=== PATIENT | female | born 1980 | race Caucasian/White ===

== ENCOUNTER 2024-11-01 00:28 | Outpatient (CLI) | payer MEDICAID, SELFPAY ==
--- NOTE | 2024-11-01 07:30 | DI.MRI_ITS ---
Exam(s) MR LOWER JOINT RT WO EXAM: MR LOWER JOINT RT WO CLINICAL HISTORY: PAIN,internal derangement rt knee,m23.91. TECHNIQUE: Multiplanar multisequence MRI was performed. COMPARISON: CR XR KNEE 3V BILAT-M2 from 05/01/2024 FINDINGS: BONES: There is no fracture or contusion pattern. Red marrow reconversion which could be associated with obesity and or anemia.. JOINTS: A small joint effusion is present. Articular cartilage: Patellofemoral joint: Severe thinning of the cartilage over the medial patellar facet extending down to involving underlying bone. There is some high signal in the bone. Medial femoral tibial joint: Articular cartilage is unremarkable. Lateral femoral tibial joint: Articular cartilage is unremarkable. LIGAMENTS/TENDONS: Anterior Cruciate: Unremarkable. Posterior Cruciate: Unremarkable. Medial Collateral:Unremarkable. Lateral Collateral ligament complex: Unremarkable. Extensor mechanism: Unremarkable. Medial retinaculum: Unremarkable. Lateral retinaculum: Unremarkable. Popliteus: Unremarkable. MENISCI: The medial meniscus is unremarkable. The lateral meniscus is unremarkable. MUSCLES: Unremarkable. SOFT TISSUES: Mild edema in the anterior soft tissues. 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 No evidence meniscal tear or ligament tear. DATA REPOSITORY:
== END 2024-11-01 00:48 ==
LOC: DI 00:28
PROVIDERS: PCP Physician Assistant Medical; Visit Provider Student in an Organized Health Care Education/Training Program
DX: M22.41 Chondromalacia patellae, right knee (principal)
CPT/HCPCS: 73721

== ENCOUNTER 2025-02-03 18:26 | Outpatient (REF) | payer MEDICARE, MEDICAID, SELFPAY ==
[2025-02-03 15:24] LABS: HCT 43.6 % (36.0-46.0); MCH 30.2 pg (27.0-33.0); MCHC 32.1 % (32.0-36.0); MCV 94 fL (80-95); MPV 9.7 fL (8.0-11.0); Platelet Count 305 10^3/uL (130-400); RBC 4.64 10^6/uL (3.93-5.22); RDW 15.7 % (11.7-14.6); WBC 11.25 10^3/uL (4.4-10.8)
[2025-02-03 16:49] LABS: Anion Gap 9.5 mmol/L (3-11); BUN 12 mg/dL (7-18); CO2 24.5 mmol/L (21.0-32.0); CREATININE 0.8 mg/dL (0.55-1.02); Calcium 9.3 mg/dL (8.5-10.1); Chloride 102 mmol/L (98-107); Glucose 119 mg/dL (74-106); Potassium 4.2 mmol/L (3.5-5.1); Sodium 136 mmol/L (136-145)
== END 2025-02-03 18:27 | disposition home or self-care (01) ==
LOC: LBN 18:26
PROVIDERS: PCP Physician Assistant Medical; Visit Provider Student in an Organized Health Care Education/Training Program
DX: M22.41 Chondromalacia patellae, right knee (principal); M17.11 Unilateral primary osteoarthritis, right knee; Z01.818 Encounter for other preprocedural examination
CPT/HCPCS: 80048; 85027

== ENCOUNTER 2025-02-12 09:51 | Day surgery (SDC) | payer MEDICARE, MEDICAID, SELFPAY ==
[2025-02-12] VITALS (20 sets, daily range): BP systolic 109–166; BP diastolic 54–94; PULSE 91–112; RESP 11–24; TEMP 36.1–37; O2SAT 86–98; BMI 52.1
--- NOTE | 2025-02-12 07:30 | PDOC.DSDIS_ITS ---
Date of service: 02/12/25 Discharge Plan Disposition Patient Disposition: Home Condition: Good Discharge Details Reason For Visit: PF Replacement R knee Attending Provider: Cameron Soto Primary Care Provider: Moni Parker Home Meds and New Rx's Prescriptions: New acetaminophen 500 mg tablet 1,000 mg PO TID Qty: 90 3RF aspirin 81 mg tablet,delayed release (DR/EC) 81 mg PO BID Qty: 60 0RF celecoxib 200 mg capsule 200 mg PO BID Qty: 60 0RF dexamethasone 4 mg tablet 4 mg PO DAILY Qty: 2 0RF docusate sodium 100 mg capsule 100 mg PO BID PRNQty: 28 0RF gabapentin 300 mg capsule 300 mg PO QHS Qty: 14 0RF oxycodone 5 mg tablet 5 mg PO Q4H PRNQty: 18 0RF Continued pantoprazole 40 mg tablet,delayed release (DR/EC) 40 mg PO DAILY topiramate [Topamax] 25 mg tablet 25 mg PO DAILY Otezla 30 mg tablet 30 mg PO BID Discharge Instructions Additional Instructions: PF Replacement Knee Discharge Instructions Activity: The most important activity is to walk and to work on gentle motion (both flexion and extension). You should try to take short walks a few times a day. It is important that when resting you work on keeping the knee straight. Avoid putting a pillow behind the knee as this will encourage flexion. Work on range of motion exercises as provided by Physical Therapy. - Start outpatient physical therapy within 2 weeks. - You should wear the ROSELYN hose on both legs for 2 weeks. You may remove these at night. You may also use any compression sock in place of the ROSELYN hose. - Utilize [employer] to review exercises, see videos on exercises and obtain basic information pertaining to your surgery and your recovery. Dressing: Remove the Ari wrap by 2 days after your surgery and put on the ROSELYN stocking given to you from the hospital. Keep the surgical dressing (underneath the ARI wrap) in place for at least one week. After the first week it may be removed and replaced with light gauze and tape or nothing. The wound and dressing may get wet after 3 days but avoid soaking the dressing or otherwise it will need to be changed. Many people prefer covering the dressing with cling wrap (saran wrap) to minimize it from getting soaked. If it gets wet, just pat dry. If it starts to peel off then it will need to be changed. Medications: - You should take Tylenol and anti-inflammatory Celebrex as your primary pain control medications. If the Celebrex is too expensive or not covered, please call the office for another alternative (Advil/Ibuprofen or Naproxen/Aleve) - You have been prescribed a stronger pain medication Oxycodone for breakthrough pain, take as needed as prescribed. - You wlil continue your stomach acid reduction agent Pantoprozole to help reduce stomach acid and reflux. - You have been prescribed Gabapentin to take at night for restlessness and nerve pain. - You will be taking Aspirin 81mg twice a day for DVT prevention unless instructed otherwise. - You have also been prescribed Decadron to take to control post-operative nausea and pain. You will start this tomorrow. - If you have constipation you should take Colace or Miralax (both [id number]). It takes most people 3-4 days to have a bowel movement. Follow-up: 2 weeks If you have any acute concerns or questions, please do not hesitate to contact the office at [phone]. You may contact Dr. Soto with any questions after hours through the hospital at [phone] or on his cell phone at [phone]. Referrals: Cameron Soto MD [ [facility] STAFF PHYSICIAN, Orthopaedic Surgical] Equipment/Supplies: Walker Activity:: Activity as Tolerated Shower/Bathe:: 72 hours Diet:: As Tolerated Discharge Orders Discharge Orders: Discharge Order (Routine); Ordered 02/12/25 Ordered By: Mario Vallejo DS: Diagnosis Discharge Diagnosis (1) Patellofemoral arthritis of right knee: Status: Acute
--- NOTE | 2025-02-12 09:50 | W.ANESPRE ---
General Info Date of Service Date Performed: 02/12/25 Height: 5 ft 2 in Weight: 129.274 kg Body Mass Index (BMI): 52.1 Surgical Procedure: Operation Date: 02/12/25 13:30 Proposed Procedure Side Surgeon p Knee Patellofemoral Replacement Right Cameron Soto MD Meds Allergies and Home Medications Allergies Allergy/AdvReac Type Severity Reaction Status Date / Time No Known Allergies Allergy Verified 02/12/25 10:10 Home Medication ?Medication ?Instructions ?Recorded pantoprazole 40 mg tablet,delayed 40 mg PO DAILY 08/06/24 release topiramate 25 mg tablet (Topamax) 25 mg PO DAILY 08/06/24 apremilast 30 mg tablet (Otezla) 30 mg PO BID Psoriasis and PSA 02/11/25 acetaminophen 500 mg tablet 1,000 mg (2 x 500 mg) PO TID #90 02/12/25 tabs aspirin 81 mg tablet,delayed 81 mg PO BID #60 tabs 02/12/25 release celecoxib 200 mg capsule 200 mg PO BID #60 caps 02/12/25 dexamethasone 4 mg tablet 4 mg PO DAILY #2 tabs 02/12/25 docusate sodium 100 mg capsule 100 mg PO BID PRN #28 caps 02/12/25 gabapentin 300 mg capsule 300 mg PO QHS #14 caps 02/12/25 oxycodone 5 mg tablet 5 mg PO Q4H PRN #18 tabs 02/12/25 Current Visit Medications: Current Medications Generic Name Dose Route Start Last Admin Trade Name Freq PRN Reason Stop Dose Admin Acetaminophen 1,000 mg 02/12/25 06:00 Acetaminophen 500 Mg Tab PO 02/12/25 23:59 PREOP SLIME Acetaminophen 1,000 mg 02/12/25 07:29 Acetaminophen 500 Mg Tab PO 03/14/25 07:28 TID PRN PRN Analgesia Celecoxib 400 mg 02/12/25 06:00 Celecoxib 200 Mg Cap PO 02/12/25 23:59 PREOP SLIME Docusate Sodium 100 mg 02/12/25 07:29 Docusate Sodium 100 Mg Cap PO 03/14/25 07:28 BID PRN PRN Constipation Gabapentin 300 mg 02/12/25 06:00 Gabapentin 300 Mg Cap PO 02/12/25 23:59 PREOP SLIME Ringer's Solution 1,000 mls @ 80 mls/hr 02/12/25 06:00 IV 02/12/25 23:59 INFUSION SLIME Cefazolin Sodium 3,000 mg/ 100 mls @ 200 mls/hr 02/12/25 06:00 Sodium Chloride IV 02/12/25 23:59 PREOP SLIME Tranexamic Acid/Sodium Chloride 1,000 mg in 100 mls @ 600 mls/hr 02/12/25 06:00 IVPB 02/12/25 23:59 PREOP SLIME IV Miscellaneous Supplies 1 each 02/12/25 06:00 Iv Access IV 02/12/25 23:59 DIRECTED SLIME Ondansetron HCl 4 mg 02/12/25 07:29 Ondansetron 4 Mg/2 Ml Vial IVP 03/14/25 07:28 Q6H PRN PRN Nausea Oxycodone HCl 0 mg 02/12/25 07:29 Oxycodone 5 Mg Tab PO 03/14/25 07:28 Q3H PRN PRN Pain Polyethylene Glycol 17 gm 02/12/25 07:29 Polyethylene Glycol 3350 17 Gm Packet PO 03/14/25 07:28 BID PRN PRN Constipation Sodium Chloride 0 ml 02/12/25 06:00 Normal Saline Flush 10 Ml Syr IV 02/12/25 23:59 PRN PRN Sodium Chloride 0 ml 02/12/25 06:00 Normal Saline 10 Ml Vial IJ 02/12/25 23:59 DIRECTED PRN Sterile Water 0 ml 02/12/25 06:00 Water,Injection,Sterile 10 Ml Vial IJ 02/12/25 23:59 DIRECTED PRN PFSH Active Problems Active Problems: Problem Status Onset Code Patellofemoral arthritis of right knee Acute M17.11 Tobacco use Acute Z72.0 Psoriatic arthritis Acute L40.50 IIH (idiopathic intracranial hypertension) Acute G93.2 Hyperglycemia Acute R73.9 Depression Chronic F32.A Chronic pain Chronic G89.29 Asthma Chronic J45.909 Tobacco Smoking/Tobacco Use Status: Current every day Tobacco Type: cigarettes Alcohol Alcohol Intake: never Substance Use Substance use: Never Substance use type: does not use Vital Signs and Lab Results Vital Signs Most Recent Vital Signs in EMR: Temp Pulse Resp BP Pulse Ox 36.6 C 112 H 19 156/69 H 96 02/12/25 10:04 02/12/25 10:04 02/12/25 10:04 02/12/25 10:04 02/12/25 10:04 Lab Results Complete Blood Count: WBC, (4.4-10.8) 11.25 10^3/uL H 02/03/25, 14:20 RBC, (3.93-5.22) 4.64 10^6/uL 02/03/25, 14:20 Hgb, (11.2-15.7) 14.0 g/dL 02/03/25, 14:20 Hct, (36.0-46.0) 43.6 % 02/03/25, 14:20 Plt Count, (130-400) 305 10^3/uL 02/03/25, 14:20 Complete Metabolic Panel: Sodium, (136-145) 136 mmol/L 02/03/25, 14:20 Potassium, (3.5-5.1) 4.2 mmol/L 02/03/25, 14:20 Chloride, (98-107) 102 mmol/L 02/03/25, 14:20 Carbon Dioxide, (21.0-32.0) 24.5 mmol/L 02/03/25, 14:20 BUN, (7-18) 12 mg/dL 02/03/25, 14:20 Creatinine, (0.55-1.02) 0.8 mg/dL 02/03/25, 14:20 Est GFR (CKD-EPI 2020), (mL/min/1.73m2) 93.70 02/03/25, 14:20 Calcium, (8.5-10.1) 9.3 mg/dL 02/03/25, 14:20 Glucose, (74-106) 119 mg/dL H 02/03/25, 14:20 Anesthesia Assessment and Plan Anesthesia History Personal History: No History of Anesthesia Complications Family History: No Family History of Anesthesia Complications Exercise Tolerance Exercise Tolerance: Metabolic Equivalents>4 Cardiac & Pulmonary Exam Cardiac Exam: Normal S1/S2 Heart Sounds Pulmonary Exam: Clear Bilateral Breath Sounds Implantable Cardiac Device Does patient have a Pacemaker or an ICD?: No Airway Exam Known Difficult Airway: No Mallampati Class: 4 Mouth Opening: Narrow (< 3cm) Thyromental Distance: Less than 3 cm Neck Range of Motion: Full ROM Neck Circumference: Thick Teeth Condition: Normal Dentition ASA Classification ASA Score: ASA 3 Emergency Case?: No NPO Status NPO Status: NPO Clears >2 hours, Solids >8 hours Status Status: Negative HCG Anesthesia Plan Resuscitation Status: Full Code Anesthesia Technique: Spinal Anesthesia Airway Planned: Natural Airway Pain Management: Surgeon and patient request nerve block Monitors Used: Standard Monitors Preoperative Comments:: 44 yo female for patellofemoral replacement. Sig PMHx: asthma (albuterol - rare use), IIH (followed by [facility]. has had LPs in the past. Topiramate), GERD (Pantoprazole. Started for nausea, which has helped) depression,
[2025-02-12] MEDS: Celecoxib 200 MG CAP 400 MG PO (10:16)
[2025-02-12] MEDS: Acetaminophen 500 MG TAB 1000 MG PO (10:16)
[2025-02-12] MEDS: Gabapentin 300 MG CAP PO (10:16)
[2025-02-12] MEDS: Lactated Ringers 1,000 ML 80 ML IV (10:42)
[2025-02-12] MEDS: Normal Saline Flush 10 ML SYR IV (11:35)
--- NOTE | 2025-02-12 11:50 | W.ANESNERVE ---
Nerve Block Single Injection Procedure Date and Time Date Performed: 02/12/25 Procedure Start: 11:38 Location Where Procedure Performed Procedure Location: Day Surgery Unit Reason Performed: Postoperative Analgesia Requesting Provider: Cameron Soto Timeout Performed Timeout Performed: Yes Monitoring Used ECG, Blood Pressure and SpO2 Sterility Sterility: Hand Hygiene, Surgical Cap, Surgical Mask, Sterile Gloves and Chlorhexidine Sedation Given During Procedure Sedation Given (Indicate Dose Given): Versed IV Dose:: 2 mg Patient Mental Status Patient Mental Status: Sedate with meaningful communication Nerve Block 1st Nerve Block: Laterality: Right Block Type: Adductor Canal Ultrasound Image Saved?: Yes Needle / Catheter Used: 100mm SonoPlex II Local Anesthetic Bolus (Indicate Dose Given): Injected in 3-5ml increments after negative blood aspiration and Bupivacaine 0.25% Dose:: 10 mL Additives (Indicate Dose Given): None Ultrasound: Sterile probe cover and gel used Nerve Stimulator: Supplement to Ultrasound use and No twitch or parasthesia noted < 0.5 mA (<0.6) Paresthesia: None Procedure Tolerated: No Complications Procedure Outcome: Successful Performed By: Domenic Mart
[2025-02-12] MEDS: ceFAZolin 3,000 MG in Normal Saline 100 ML 200 MG IV (12:11)
[2025-02-12] MEDS: TRANEXAMIC ACID/SOD. CHL. 1,000 MG/100 ML BAG 600 MG IVPB (12:19)
--- NOTE | 2025-02-12 13:14 | ROE_ITS ---
Operative Note Operative Note PRE-OP DIAGNOSIS: Right Patella Chondromalacia POST-OP DIAGNOSIS: same PROCEDURE: Right Patlleofemoral Replacement SURGEON: Cameron Soto INJECTION SPECIALIST: Mario Vallejo Refer to Anesthesia Record ESTIMATED BLOOD LOSS: 50 PATHOLOGY: none sent TOURNIQUET TIME: 0 COMPLICATIONS: None Patient was transported to: PACU Patient's condition: stable Implants: 1. Arthrosurface Wave Trochlear Component, 10x5mm 2. Depuy Attune Patellar Button, 29mm Indications: Ayla is a 44 year old female who has had symptoms of right patellofemoral arthritis, with focal complete chondormalacia of the patella. Conservative measures have been exhausted yet pain and dysfunction persisted. Please see office notes for complete details. Given the continued symptoms, I recommended a patellofemoral replacement. I reviewed the risks of the procedure to include bleeding, infection, pain, stiffness, worsening medial or lateral compartment arthritis, patellar instability, loosening, fracture, clot. Despite these risks, she elected to proceed. Findings: There was notable full-thickness cartilage loss about the lateral facet of the patella along with some chondromalacia within the central trochlea. The remainder of the knee did not show any extensive cartilage wear. Procedure Description: Ayla was greeted in the preoperative holding area where the correct side was identified and marked. The consent was reviewed with the patient and signed. The history and physical was updated. All questions were answered. Preoperative medications were administered: Acetaminophen 1000mg, Celebrex 400mg, and Gabapentin 300mg. An adductor canal block was then administered by the anesthesia team in the DSU. She was taken back to the operating room. A spinal anesthestic was then administered. The patient was placed into the supine position on the operating room table. A nonsterile tourniquet was placed high onto the leg but not used. Posts were placed for positioning during the procedure. All bony prominences were well padded. Prophylactic antibiotics in the form of Cefazolin were administered. 1g of Tranxemic Acid was given intravenously within 30 minutes of incision. The right leg was then prepped with Chloraprep and draped in a standard fashion with impervious stockinette and extremity drape. A second prep with Chloraprep was performed prior to placing Ioband. A timeout to confirm correct identity, side and site, procedure, allergies, anesthesia, and medical concerns was performed. With the knee in some flexion, a midline incision was made overlying the knee. Full thickness skin flaps were raised once the extensor mechanism was encountered. These were raised medially and laterally. Any bleeding was controlled with electrocautery. Once the extensor mechanism was fully exposed, a medial parapatellar arthrotomy was performed in a flexed position. All bleeding from the arthrotomy and the geniculate arteries was coagulated. The menisci and intrameniscal ligament was preserved. The knee was held in extension and the patella was measured as 21 mm. Using the patellar clamp and cut guide, this was resected to a flat surface with at least 13mm of thickness remaining. The size 32 patella fit the best. This was oriented and then clamped into position. The lugs were drilled. The Arthrosurface patellofemoral trial was then placed in the appropriate position and a single guidewire was placed through the center of this device. This was confirmed to be in appropriate location using the targeting arm. The trochlea was then sized in both directions corresponding to an 10x5. The initial reamer was then placed and taken down to appropriate depth. The reaming and drill guide was then placed within this recess and secured with pins. Using both the centralized reamer and the edge reamer, the trochlear recess was prepared. The guide was removed and the edges were curetted for completeness. The central hole was then prepared with a drill and a tap. The outer surface screw was then inserted to the premeasured depth. The 10 x 5mm patellofemoral Wave trochlear component by Arthrosurface was then malleted into position sitting flush over the lateral and proximal lateral aspect. High viscosity cement was prepared on the back table under vacuum preparation. When ready, cement was manually impacted into the cut surface of the patella and the patellar button was clamped into position and held. During this process attention was turned to the gutters of the knee and for all interfaces for any excess cement. While the cement was hardening, the knee was irrigated with Surgiphor betadine solution. It was allowed to sit in the knee for 3 minutes after which it was irrigated with normal saline. After the cement had finally cured, approximately 15min, the clamp was removed from the patella and the knee was taken through range of motion. The capsule was then reapproximated with a No. 1 Vicryl. Deep tissues were then reapproximated with 0 Vicryl and 2-0 Vicryl. The skin was closed with a running 3-0 Monocryl in a subcuticular fashion. This was reinforced with skin glue. A Mepilex silver dressing was applied along with a [id number] LUIS ALBERTO wrap. A CryoCuff was applied. Ayla was transferred to the hospital bed without difficulty an suffering no apparent complication. Ayla has a good prognosis. Physical therapy will start today and without restrictions, weight-bearing as tolerated. Aspirin 81mg BID will be used for DVT prophylaxis. Date of Procedure: 02/12/25
--- NOTE | 2025-02-12 13:59 | W.ANESPOSTOP ---
Postoperative Evaluation Date, Time and Location Date Performed: 02/12/25 Time Performed: 13:59 Patient Location: PACU Vital Signs Most Recent Imported Vital Signs: Most Recent Vital Signs Temp Pulse Resp BP Pulse Ox 36.8 C 98 H 22 128/64 92 02/12/25 13:50 02/12/25 13:51 02/12/25 13:51 02/12/25 13:50 02/12/25 13:51 Pain Score Most Recent Pain Score: Most Recent Pain Score Pain Level 0 02/12/25 13:50 Assessment Mental Status: Awake (Alert & Oriented to Patient Baseline) Airway and Respiratory Function: Patent airway with normal (patient baseline) respiratory exam (SPO2 90-92%, IS ordered. ) Cardiovascular Function: Hemodynamically Stable Hydration Status: Adequately Hydrated Nausea & Vomiting: No Nausea or Vomiting Pain: Pain is tolerable per patient Peripheral Nerve Block: Regional nerve block not resolved at time of post operative discharge
--- NOTE | 2025-02-12 15:05 | IN_ITS ---
PT Notes Visit Reasons: PF Replacement R knee Physical Therapy Day Surgery Initial Evaluation Date: 02/12/2025 Referring Doctor: MICHELE Bundy; Dr. Soto PT Orders: PT CONSULT: S/P Ortho surgery Precautions: WBAT RLE Patient Profile/Admitting Diagnosis: Patient is 44-year-old female presenting status post right patellofemoral replacement by Dr. Soto on 02/12/2025. Patient postop uncomplicated PMHX: Chondromalacia of right patella (Acute) Patellofemoral arthritis of right knee (Acute) Internal derangement of right knee (Acute) Tobacco use (Acute) Psoriatic arthritis (Acute) IIH (idiopathic intracranial hypertension) (Acute) Hyperglycemia (Acute) Depression (Chronic) Chronic pain (Chronic) Asthma (Chronic) Social History/Home Situation: Patient resides in a multilevel home with stairs to enter and 15 steps to bedroom with railing on right. Patient independent with ADLs, ambulation without device, home management, meal prep, shopping. Equipment Owned/DME: FWW, commode over toilet, leg clinical support nurse, sock aid Subjective: Patient reports she will be staying on 1 level for now. She reports she has 15 stairs to her bedroom without railing on the right Objective: [] General Observation: Young female semireclined on stretcher has been visiting Cryo/Cuff to right knee Mental Status: Alert and oriented x 4, cooperative, able to follow instructions, agreeable to participate in eval Pain: Right knee 3/10 ROM: [] BUE: WNL Right Lower Extremity: Hip and ankle within normal limits; knee 0-94 degrees Left Lower Extremity: WNL Strength: [] BUE: 5/5 Right Lower Extremity: Hip flexion: 3- /5; hip abduction: 3 -/5; hip extension: 3 -/5; knee extension: 3 -/5; knee flexion: 2+/5 ankle DF: 3/5 ; ankle PF: 3/5; patient demonstrates quad set without compensation with cueing, straight leg raise without lag after performing quad set to initiate motion Left Lower Extremity: 5/5 grossly Sensation: Intact to light touch and pain Bed Mobility/Transfers: [] Supine to sit independent Sit to stand SBA with cues to push up from surface Stand to sit SBA with cues to reach back Bed to chair SBA with FWW Gait: Ambulated with FWW SBA 150 feet level surfaces including turns patient initially required cues for quad activation at mid stance to reduce knee instability on right. stairs: Two 6 inch steps and three 4 inch steps x 2 trials with right rail standby assist step to pattern cues for sequencing Balance: [] Static Sitting: normal Dynamic Sitting: good Static Standing: Good Dynamic Standing: fair plus Special Tests: [] Mobility Limitations Standardized Measure [] [facility] AM-PAC 6 clicks Basic Mobility Inpatient Short Form: [] Raw Score: 23. All CMS Score: 11.20% Informed Consent/Education: Patient instructed in purpose of PT consult. Packet containing knee exercise protocol has been given to patient. Education and training on initial set of exercises that can be done at home have been completed with patient. Assessment: Patient is a 44-year-old female who presents with clinical signs and symptoms consistent with current/admitting diagnoses that have resulted to mobility limitations, gait instability, generalized weakness, and impairment of motor control as demonstrated by the following impairment level findings: 1. Decreased strength to right knee major muscle groups 2. Impaired standing balance 3. Limitation of joint range of motion in right knee 4. Impaired functional activity tolerance . 5. Pain in right knee Impairments are contributing to the following functional limitations: 1. Inability to safely ambulate without assistive device 2. Increase completion time for mobility ADL performance 3. Increased fall risk 4. Difficulty performing stairs Patient is assessed as a low complexity based on the following: History: 44-year-old female with impairment level findings, functional limitations, and past medical history as indicated above Examination: Demonstrable impairment in strength, balance, and mobility level with underlying impairments and functional limitations as documented above Presentation: Stable Decision Making: Low Goals: N/A. PT evaluation and 1-2 treatment sessions only for functional mobility training using recommended AD and for HEP instruction. Plan of Care/Treatment Plan: N/A. PT evaluation and 1-2 treatment session only for functional mobility training using recommended AD and for HEP instruction. DISCHARGE RECOMMENDATIONS: Home with home exercise program and outpatient PT as scheduled TREATMENT CODE/TIME: [id number] Thank you for the opportunity to participate in the care of this patient. Shira Matute,PT [facility]
== END 2025-02-12 15:23 | disposition home or self-care (01) ==
PROVIDERS: PCP Physician Assistant Medical; Visit Provider Student in an Organized Health Care Education/Training Program
PROC: (CPT 27437; principal; 2025-02-12 13:00)
DX: M17.11 Unilateral primary osteoarthritis, right knee (principal); M22.41 Chondromalacia patellae, right knee; G89.18 Other acute postprocedural pain; M25.561 Pain in right knee
CPT/HCPCS: 27438; 64447; 81025; 97161; C1776; J0665; J0690; J1100; J2250; J2371; J2401; J2405; J2704

== ENCOUNTER 2025-02-27 14:01 | Outpatient (CLI) | payer MEDICARE, MEDICAID, SELFPAY ==
--- NOTE | 2025-02-27 13:20 | DI.RAD_ITS ---
Exam(s) XR KNEE RT 3V AP,LAT,DARIA EXAM: XR KNEE RT 3V AP,LAT,DARIA CLINICAL HISTORY: 1ST POST OP S/P PF REPLACEMENT. TECHNIQUE: 2D digital imaging was performed. Three views. COMPARISON: CR XR KNEE 3V BILAT-M2 from 05/01/2024 FINDINGS: BONES: No acute fracture is present. No bony destructive lesion is seen. JOINTS: The knee is normally aligned. There is a patellofemoral joint prosthesis. The femoral tibial joint spaces are maintained. No joint effusion is seen. SOFT TISSUE: Normal. IMPRESSION: Status post placement patellofemoral prosthesis with satisfactory position. DATA REPOSITORY: RADIATION DOSE DELIVERED:
== END 2025-02-27 14:02 | disposition home or self-care (01) ==
LOC: DIORS 14:02
PROVIDERS: PCP Physician Assistant Medical; Referring Provider Physician Assistant Medical; Visit Provider Physician Assistant
DX: M17.11 Unilateral primary osteoarthritis, right knee (principal); Z47.89 Encounter for other orthopedic aftercare
CPT/HCPCS: 99024; 73562

== ENCOUNTER → 2025-03-27 13:46 | Outpatient (BNVA) | payer MEDICARE, MEDICAID, SELFPAY | PROVIDERS: PCP Physician Assistant Medical; Referring Provider Physician Assistant Medical; Visit Provider Student in an Organized Health Care Education/Training Program | DX: Z47.89 Encounter for other orthopedic aftercare (principal); M17.11 Unilateral primary osteoarthritis, right knee | CPT/HCPCS: 99024 ==